=== PATIENT | female | born 1965 | race Caucasian/White ===

== ENCOUNTER 2025-10-09 12:03 | Emergency (ER) | payer MEDICAID, SELFPAY ==
[2025-10-09 12:06] VITALS: BP 100/61; PULSE 70; RESP 16; TEMP 37.4; O2SAT 95
[2025-10-09 12:13] VITALS: BP 100/61; PULSE 70; RESP 16; TEMP 37.4; O2SAT 95
--- NOTE | 2025-10-09 12:15 | DI.RAD_ITS ---
Exam(s) XR HAND LT COMPLETE EXAM: XR HAND LT COMPLETE CLINICAL HISTORY: Left hand pain. TECHNIQUE: 2D digital imaging was performed of the left hand. Four views were obtained. AP, lateral and oblique views were obtained. COMPARISON: No exams were available for comparison FINDINGS: BONES: No acute fracture is present. No bony destructive lesion is seen. Orthopedic plate and screws are seen in the distal radius. The orthopedic hardware appears unremarkable. JOINTS: No dislocation present. Osteoarthritis is seen in the hand characterized by joint space narrowing and osteophytes in the interphalangeal joints. SOFT TISSUE: Normal. IMPRESSION: 1. There is no acute fracture or dislocation. 2. Osteoarthritis of the hand. 3. The preliminary [facility] report was reviewed. DATA REPOSITORY: RADIATION DOSE DELIVERED:
--- NOTE | 2025-10-09 12:29 | W.ED.GENAD ---
Discharge Plan Disposition Patient Disposition: Home Discharge Details Clinical Impression: Swelling of left hand, Acute pain of left wrist Primary Care Provider: Unknown,Unknown ED Provider: Kevin Causey Discharge Instructions Additional Instructions: You are seen in the emergency department for your wrist pain and your hand swelling. Your x-ray did not show any signs of any fractures. As we discussed if you get increasing swelling or increasing pain please return to the emergency department. Otherwise please wear the splint as needed. Your symptoms may related to your old fracture. Please return to the emergency department if your symptoms do not improve. Please ice your hand for 20 minutes on 20 minutes off for the next 2 days. For your pain please take medications as follows: 1. Take acetaminophen (Tylenol), 650 mg every 6 hours [2. Take ibuprofen (Advil), 400 mg every 6 hours.] Stand Alone Forms: Portal Information HPI General Date/Time Provider Initiated Documentation: 10/09/25 12:29. HPI Narrative: MDM This is an overall well-appearing normothermic and nontachycardic 60-year-old female with several days worth of atraumatic left hand swelling for which patient will undergo x-ray to assess for any acute osseous abnormalities urinalysis and assessment of basic labs to assess for any acute kidney injury. No history of gout to suggest cardiac arthritis and no warmth. No fluctuance to suggest abscess. No significant warmth or erythema to suggest cellulitis. No rash to suggest zoster. No recent upper extremity PICC lines nor proximal humeral tenderness to suggest upper extremity DVT and so do not feel patient present duplex study nor D-dimer. No pain on proportion to suggest necrotizing soft tissue infection. 3:53 PM Hand x-ray read as reassuring. Patient does have hardware in her distal ipsilateral left radius. She tells me that this is from a remote fracture. Given no erythema I am not suspicious for septic joint. Patient has normal reassuring renal function. She does have hyperglycemia but no anion gap nor bicarbonate/not consistent with UTI. CBC lacks anemia thrombocytopenia or leukocytosis. Urinalysis lacks proteinuria so not suspicious for acute renal failure. May have a component of osteoarthritis given her fracture. It certainly possible that the development of early process such as cellulitis. I did not feel that inflammatory markers would change management facilitator as patient has no warmth to suggest cellulitis so we will defer antibiotics at this point in time. Patient and I discussed that she should return to emergency department if her symptoms worsen or do not improve. We also discussed that she developed any pain in her hand or redness or fevers that she should return. She understood her return indications discharged with an empiric trial of expectant outpatient management. HPI The patient presents for evaluation of left hand swelling. Patient is right-hand dominant. She reports that the swelling in her left hand began a few days ago, with no known cause or trauma. This is her first experience with such a symptom. The swelling is accompanied by pain during movement and a slight warmth to the touch. She has not had any recent intravenous procedures in the affected arm, nor has she been hospitalized recently. She is not experiencing any fevers, respiratory difficulties, or changes in urinary output. Her appetite remains unaffected. No history of gout. She denies IV drug use. Exam General: Well-appearing in no acute distress speaking in complete sentences. Head: Normocephalic, atraumatic. Eye: Extraocular eye movements intact. No conjunctival injection. No scleral icterus. Ear, nose, mouth, throat: Grossly normal inspection. Normal voice, handling secretions normally. Neck: Trachea midline. Cardiovascular: Well-perfused distal extremities. Respiratory: Nonlabored respiration. Gastrointestinal: Nondistended abdomen. Musculoskeletal: Left hand markedly swollen compared to contralateral right hand. Cap refill less than 2 seconds left fingertips. 2+ left radial pulse. No significant warmth. Sensation motor function intact in left hand across the radial, median, and ulnar nerve distributions. Full range of motion throughout upper extremity and left. No tenderness throughout proximal left upper extremity. Patient can fully pronate and supinate flex and extend at the left forearm and elbow respectively. Skin: Normal for age and race, grossly normal temperature and turgor. No acute rash. Neurologic: Alert and appropriate, no apparent acute deficits. Psychiatric: Mood and manner are appropriate. Grooming and personal hygiene are appropriate. Related Data Allergies Allergy/AdvReac Type Severity Reaction Status Date / Time No Known Allergies Allergy Unverified 10/09/25 12:11 General Stated Complaint: Cellulitis CAMPOS: 3 Course Vital Signs Vital signs: Vital Signs Temperature 37.4 C 10/09/25 12:06 Pulse 70 10/09/25 12:06 Respiratory Rate 16 10/09/25 12:06 Blood Pressure 100/61 10/09/25 12:06 Pulse Oximetry 95 10/09/25 12:06 Temperature 37.4 C 10/09/25 12:13 Temperature Source Temporal Artery Scan 10/09/25 12:13 Pulse 70 10/09/25 12:13 Respiratory Rate 16 10/09/25 12:13 Blood Pressure 100/61 10/09/25 12:13 Blood Pressure Position Sitting 10/09/25 12:13 Pulse Oximetry 95 10/09/25 12:13 Oxygen Delivery Method Room Air 10/09/25 12:13 Oxygen Flow Rate 0 10/09/25 12:13 Pain Level 10 10/09/25 12:13 PFSH All Active Problems (Updated 10/09/25 @ 16:26 by Kevin Causey MD) Acute pain of left wrist (Acute) Swelling of left hand (Acute) Social History Smoking/Tobacco Use Status: Current every day Smoking risk assessment performed?: Yes Alcohol Intake: current Alcohol Intake frequency: holidays/special occasions only Substance use type: does not use Housing: apartment Do you feel safe at home: Yes Do you feel safe in your relationship?: Yes
--- NOTE | 2025-10-09 14:15 | DI.[facility]_ITS ---
PROCEDURE INFORMATION: Exam: XR Left Hand Exam date and time: 10/09/2025 1:13 PM Age: 60 years old Clinical indication: Swelling; Hand; Left; Prior surgery; Surgery date: 6+ months; Surgery type: Wrist FX TECHNIQUE: Imaging protocol: Radiologic exam of the left hand. Views: 3 or more views. COMPARISON: No relevant prior studies available. FINDINGS: Bones/joints: Plate and screws in the distal radius. Distal radius fracture is healed.. There is joint space narrowing in the DIP joints and PIP joints of the fingers and IP joint of the thumb consistent with degenerative changes. Degenerative changes in the radiocarpal joint Soft tissues: Normal. IMPRESSION: 1. Plate and screws in the distal radius. Distal radius fracture is healed.. 2. There is joint space narrowing in the DIP joints and PIP joints of the fingers and IP joint of the thumb consistent with degenerative changes. Dictated and Authenticated by: Alexia Logan MD. Orderin Padilla Brown MD
[2025-10-09 15:27] LABS: Abs Immature Grans 0.01 10^3/uL (0.0-0.06); HCT 37.6 % (36.0-46.0); HGB 12.8 g/dL (11.2-15.7); Immature Grans % 0.2 %; MCH 30.2 pg (27.0-33.0); MCHC 34.0 % (32.0-36.0); MCV 89 fL (80-95); MPV 9.4 fL (8.0-11.0); Platelet Count 394 10^3/uL (130-400); RBC 4.24 10^6/uL (3.93-5.22); RDW 12.7 % (11.7-14.6); RDW-SD 41.3 fL; WBC 5.39 10^3/uL (4.4-10.8)
[2025-10-09 15:52] LABS: Anion Gap 5 mmol/L (3-11); BUN 8 mg/dL (9-23); CO2 30.0 mmol/L (20.0-31.0); Calcium 9.1 mg/dL (8.3-10.6); Chloride 101 mmol/L (98-107); Glucose 475 mg/dL (74-106); Potassium 3.7 mmol/L (3.5-5.1); Sodium 136 mmol/L (136-145)
[2025-10-09 16:00] LABS: Glucose >=1000 mg/dL (Negative)
[2025-10-09 16:07] LABS: RBC >50 HPF (0-2); WBC >50 HPF (0-5)
[2025-10-09] MEDS: Acetaminophen 325 MG TAB 650 MG PO (16:32)
[2025-10-09 16:39] VITALS: BP 146/76; PULSE 64; RESP 18; TEMP 36.8; O2SAT 98
--- NOTE | 2025-10-12 11:36 | NUR.NOTE ---
Access chart to get the discharge diagnosis for [facility] billing requisition.Nursing Note:
== END 2025-10-09 16:40 | disposition home or self-care (01) ==
PROVIDERS: Emergency Provider Emergency Medicine
DX: M79.89 Other specified soft tissue disorders (principal); M25.532 Pain in left wrist
CPT/HCPCS: 99283 ×2; 80048; 73130; 81003; 81015; 85025

== ENCOUNTER 2025-10-15 12:58 | Emergency (ER) | payer MEDICAID, SELFPAY ==
[2025-10-15 12:50] VITALS: BP 98/63; PULSE 78; RESP 15; TEMP 36.6; O2SAT 93
--- NOTE | 2025-10-15 12:57 | W.ED.GENAD ---
Discharge Plan Disposition Patient Disposition: Home Condition: Stable Discharge Details Clinical Impression: Arthritis of left hand Primary Care Provider: Unknown,Unknown ED Provider: Dallas Gautam Home Meds and New Rx's Prescriptions: New diclofenac sodium 1 % gel 2 g topical QID Qty: 50 0RF Rx Instructions: apply to single elbow, wrist or hand; for hand includes palm/fingers/back of hand Discharge Instructions Instructions: Osteoarthritis, Diclofenac (Topical) Additional Instructions: You were seen in the emergency department for your continued left wrist pain after years ago having a surgical repair, you had a recent x-ray on Friday that showed some arthritis but that your screws and pins were not loose or out of place, your fracture healed well. Please take Tylenol and ibuprofen for pain, use snow and a plastic bag is an ice pack, I have referred you to establish care with a primary care physician, they can refer you to orthopedics for this, have also provided you with a referral for physical therapy. I have prescribed you topical diclofenac gel to apply to the hand for arthritis pain relief. You have normal range of motion and are neurovascularly intact and there is no emergent pathology going on in your left hand or wrist. Do not hesitate to return for any emergency. Stand Alone Forms: Physical Therapy Referral, Portal Information Referrals: [facility] [Provider Group] [facility] [Provider Group] [facility] [Provider Group] Discharge Data Discharge Date/Time-TO BE ENTERED AT DEPARTURE: 10/15/25 13:41 HPI General Date/Time Provider Initiated Documentation: 10/15/25 13:06. HPI Narrative: 60 year-old female presents to ED today by EMS with a chief complaint of continued L wrist pain, seen just days ago with XR only showing arthritis with onset chronically- had ORIF years ago to this wrist. Quality described as just hurts, no radiation to numbness/tingling, redness, swelling, new trauma. Severity is described as moderate. Palliating factors include nothing attempted- is in thumb spica from the other days visit- has not been icing it, or taking any OTC medications. Provoking factors include nothing specific. Patient not anticoagulated. Related Data Home Medications ?Medication ?Instructions ?Recorded ?Confirmed diclofenac sodium 1 % topical gel 2 g topical QID #50 grams 10/15/25 Previous Rx's ?Medication ?Instructions ?Recorded diclofenac sodium 1 % topical gel 2 g topical QID #50 grams 10/15/25 Allergies Allergy/AdvReac Type Severity Reaction Status Date / Time No Known Allergies Allergy Unverified 10/15/25 12:55 General Stated Complaint: Orthopedic CAMPOS: 4 Review of Systems All systems reviewed & are unremarkable except as noted in HPI and below Exam Narrative Exam Narrative: GENERAL APPEARANCE: Frail, non-toxic, awake and alert, atraumatic, no acute distress. SKIN: Warm, pink, dry, intact, without rashes/lesions/ulcerations. HEAD: Normocephalic, atraumatic, normal hair distribution for gender/age. EYES: Normal conjunctiva, no exudates on lids/lashes. ENT: Nares patent, no circumoral cyanosis, no facial swelling NECK: Supple, trachea midline, painless cervical ROM. LUNGS/CHEST: Non-labored respirations, normal A/P diameter, symmetrical expansion, no chest wall deformity HEART (CV/PV): Regular rate, L radial pulse 2+, no peripheral edema, no JVD. ABDOMEN: Soft, non-distended, no guarding. MSK: Normal ROM, no swelling/deformity to bilateral UEs or LEs, moving all extremities without weakness - L wrist no erythema no crepitus no swelling, no anatomical snuffbox tenderness, welcome center attendant strength 5/5, sensation intact to the hand, no lymphadenitis spreading up the arm, no cyanosis, spine midline without tenderness, normal curvature. NEURO: Mental Status AAOx4 - alert to person, place, time, events No facial droop, no forehead involvement. Motor: No focal weakness Sensory: sensation intact to light touch globally. Gait normal: patient ambulated without ataxia into ED room. PSYCH: euthymic, cooperative, pleasant, appropriate speech Course Vital Signs Vital signs: Vital Signs Temperature 36.6 C 10/15/25 12:50 Pulse 78 10/15/25 12:50 Respiratory Rate 15 10/15/25 12:50 Blood Pressure 98/63 L 10/15/25 12:50 Pulse Oximetry 93 10/15/25 12:50 Temperature 36.6 C 10/15/25 12:50 Temperature Source Oral 10/15/25 12:50 Pulse 78 10/15/25 12:50 Respiratory Rate 15 10/15/25 12:50 Blood Pressure 98/63 L 10/15/25 12:50 Blood Pressure Position Sitting 10/15/25 12:50 Pulse Oximetry 93 10/15/25 12:50 Oxygen Delivery Method Room Air 10/15/25 12:50 Oxygen Flow Rate 0 10/15/25 12:50 Pain Level 7 10/15/25 12:50 Medical Decision Making This dictation utilizes [id number] dictation software and may contain unedited grammatical errors. 60 year-old female presents to ED today by EMS with a chief complaint of continued L wrist pain, seen just days ago with XR only showing arthritis with onset chronically- had ORIF years ago to this wrist. Quality described as just hurts, no radiation to numbness/tingling, redness, swelling, new trauma. Severity is described as moderate. Palliating factors include nothing attempted- is in thumb spica from the other days visit- has not been icing it, or taking any OTC medications. Provoking factors include nothing specific. Patients' medical history: Arthritis of left wrist. Family and social history: Noncontributory. Pertinent exam findings / vital signs include left radial pulse 2+, welcome center attendant strength 5/5, sensation intact, no erythema warm to touch, full range of motion in the wrist, no lymphadenitis. Differential / pathologies of concern include arthritic left wrist pain, not fracture. Diagnostic studies of: - None, I counseled the patient that she has no need for repeat x-ray. Interventions of: - Counseled her on using Snow for ice and plastic bags and taking adequate dosing of medications but there is no acute intervention that the ER may take for continued mild to moderate pain without findings recommend she continue using the thumb spica splint referred her to primary care establishment. Recommend topical Voltaren which was prescribed at this visit. - Provided PT referral ED Course/Assessment/Plan: 60-year-old female presents with continued pain after being seen days ago with a negative x-ray of her left wrist placed in a thumb spica, she has not been attempting any reasonable means of abating this pain at home and it is unclear why she took an ambulance to the ER for this baseline left wrist pain, counseled her that she has follow-up with primary care with this problem as well as rest, ice, compress and elevate and remain in the thumb spica and use OTC pain meds and prescribed her Voltaren gel, she has neurovascular intact I stressed return criteria for any emergent concerns. Findings not consistent with neurovascular compromise, fracture, new trauma, infection. Disposition of Arthritis of Left Hand. Patient verbalized understanding of the plan and return to ED criteria and engaged in shared decision making. Medical Records Medical records reviewed: Yes I reviewed the patient's medical records. [facility] All Active Problems (Updated 10/15/25 @ 13:09 by MATTHEW Brown) Arthritis of left hand (Acute) Acute pain of left wrist (Acute) Swelling of left hand (Acute) Social History Smoking/Tobacco Use Status: Current every day Smoking risk assessment performed?: Yes Alcohol Intake: current Alcohol Intake frequency: holidays/special occasions only Drug use: Never Substance use type: does not use Housing: apartment Do you feel safe at home: Yes Do you feel safe in your relationship?: Yes
[2025-10-15] MEDS: Acetaminophen 500 MG TAB 1000 MG PO (13:29)
[2025-10-15] MEDS: Ibuprofen 400 MG TAB PO (13:34)
== END 2025-10-15 13:41 | disposition home or self-care (01) ==
PROVIDERS: Emergency Provider Physician Assistant
DX: M19.042 Primary osteoarthritis, left hand (principal); M25.532 Pain in left wrist; M79.89 Other specified soft tissue disorders; Z87.81 Personal history of (healed) traumatic fracture
CPT/HCPCS: 99283 ×2